=== PATIENT | male | born 1990 | race Caucasian/White ===

== ENCOUNTER 2016-12-15 18:20 | Emergency (ER) | payer MEDICAID ==
[~2016-12-15] VITALS: Ht 170.2 cm; Wt 65.0 kg
[2016-12-15 18:22] VITALS: BP 128/71
== END 2016-12-15 19:40 | disposition left against medical advice (07) ==
LOC: ER 18:30
DX: R68.84 Jaw pain (principal); Z53.21 Procedure and treatment not carried out due to patient leaving prior to being seen by health care provider